=== PATIENT | male | born 1960 | race Caucasian/White ===

== ENCOUNTER 2016-12-12 04:31 | Inpatient (IN) | payer OTHER ==
--- NOTE | 2016-12-10 14:35 | EKG Report ---
Test Performed on : 12/10/2016 2:23:03 PM Test Reason : PAT Blood Pressure : / mmHG Vent. Rate : 059 BPM Atrial Rate : 059 BPM P-R Int : 178 ms QRS Dur : 094 ms QT Int : 394 ms P-R-T Axes : 045 009 039 degrees QTc Int : 390 ms Sinus bradycardia. Possible Inferior infarct (cited on or before 01-SEP-2015) Abnormal ECG When compared with ECG of 01-SEP-2015 06:58, No significant change was found Confirmed by Jakob Troy MD ([id number]) on 12/11/2016 9:46:36 PM
[2016-12-10 15:07] LABS: MANUAL DIFF NEEDED? NO
[2016-12-10 15:14] LABS: BASO% 0.3 % (0.0-0.8); EOS# 0.11 X1000 (0.0-0.7); EOS% 1.8 % (0.0-10.0); HEMATOCRIT 44.8 % (42.0-52.0); HEMOGLOBIN 15.6 g/dL (14.0-18.0); LYMPH# 1.86 X1000 (1.2-3.4); LYMPH% 30.7 % (20.5-51.1); MCH 30.4 PG (27-31); MCHC 34.8 g/dL (33-37); MCV 87.3 FL (81-99); MONO# 0.56 X1000 (0.11-0.59); MONO% 9.3 % (1.7-9.3); MPV 9.8 FL (7.4-10.4); NEUT% 57.9 % (42.2-75.2); PLT 261 X1000 (130-400); RBC 5.13 XMIL (4.7-6.1)
[2016-12-10 15:20] LABS: INR 0.98; PROTIME 10.4 Seconds (9.2-11.7); PTT 25.2 Seconds (22.0-36.0)
[2016-12-10 15:32] LABS: AGAP 12; BUN 19 mg/dL (8-22); CALCIUM 8.7 mg/dL (8.8-10.2); CHLORIDE 98 mmol/L (98-107); COSMO 271; POTASSIUM 4.1 mmol/L (3.5-5.1); SODIUM 134 mmol/L (136-145); TCO2 24 mmol/L (25-35)
[2016-12-12] MEDS ORDERED: TRANSDERM-SCOP ONE (06:30)
[2016-12-12] MEDS ORDERED: VALIUM ONE (06:31)
[2016-12-12] MEDS ORDERED: LR 1,000 ML ONE ×2 (06:31→14:08)
[2016-12-12] MEDS ORDERED: KEFZOL 2 GM/D5W 50 ML ONE (06:31)
[2016-12-12 09:22] LABS: URINE MICRO REVIEW NEEDED? NO; URINE SOURCE CATH
[2016-12-12 09:26] LABS: BILIRUBIN URINE NEGATIVE (NEGATIVE); BLOOD URINE NEGATIVE (NEGATIVE); COLOR YELLOW; GLUCOSE URINE NEGATIVE (NEGATIVE); LEUKOCYTES URINE NEGATIVE (NEGATIVE); NITRITE URINE NEGATIVE (NEGATIVE); PH URINE 6.5; PROTEIN URINE NEGATIVE (NEGATIVE); SP GRAVITY URINE 1.017; TURBIDITY URINE CLEAR (CLEAR); UR EPITHELIAL CELLS <10 /HPF (<10); URINE BACTERIA NEGATIVE /HPF; URINE RBC <10 /HPF (<10); URINE WBC <10 /HPF (<10); UROBILINOGEN URINE NORMAL (NORMAL)
[2016-12-12] MEDS ORDERED: MARCAINE 0.25% PF ONE (12:33)
[2016-12-12] MEDS ORDERED: FENTANYL ONE (13:52)
[2016-12-12] MEDS: DILAUDID ONE ×6 (13:52→14:52)
[2016-12-12] MEDS ORDERED: VERSED ONE (13:53)
[2016-12-12] MEDS ORDERED: DIPRIVAN 1% ONE (13:53)
[2016-12-12] MEDS ORDERED: MORPHINE IM PRN (14:14)
[2016-12-12] MEDS ORDERED: ZOFRAN IV PRN (14:14)
[2016-12-12] MEDS: PHENERGAN ONE ×2 (14:39→14:49)
[2016-12-12] MEDS ORDERED: NEOSTIGMINE ONE (14:52)
[2016-12-12] MEDS ORDERED: MANNITOL ONE (14:52)
[2016-12-12] MEDS ORDERED: ZOFRAN ONE (14:52)
[2016-12-12] MEDS ORDERED: QUELICIN (DOSE) ONE (14:53)
[2016-12-12] MEDS ORDERED: ROBINUL ONE (14:53)
[2016-12-12] MEDS ORDERED: NS 3,000 ML ONE (14:53)
[2016-12-12] MEDS ORDERED: EXTENSION SET 32 IN 4522 ONE (14:53)
[2016-12-12] MEDS ORDERED: EPHEDRINE ONE (14:53)
[2016-12-12] MEDS ORDERED: OFIRMEV 1000 MG/ISOTONIC SOLN 100 ML ONE (14:53)
[2016-12-12] MEDS ORDERED: XYLOCAINE-MPF 2% ONE (14:53)
[2016-12-12] MEDS ORDERED: NORCURON ONE (14:53)
[2016-12-12] MEDS ORDERED: LR 2,000 ML ONE (14:53)
[2016-12-12] MEDS ORDERED: DECADRON ONE (14:53)
[2016-12-12] MEDS ORDERED: BLOOD SET Y-TYPE 8949 ONE (14:53)
[2016-12-12] MEDS: DEMEROL IV PRN ×2 (16:47→21:11)
[2016-12-12] MEDS: LR 1,000 ML IV SCH ×2 (16:49→23:55)
[2016-12-12] MEDS: PERCOCET-5 PO PRN (18:33)
--- NOTE | 2016-12-12 20:35 | CONSULTATION ---
DATE OF CONSULTATION: 12/12/2016 HISTORY OF PRESENT ILLNESS: I was asked to see Cesar Shelley, a 56-year-old, white gentleman, admitted to the hospital for postop medical management after right partial nephrectomy for a solid tumor which was incidentally discovered in our clinic. Postoperatively, he is doing some pain. No other complaints. PAST MEDICAL HISTORY: Hypertension. Hyperlipidemia. PAST SURGICAL HISTORY: ACL repair on the right knee. Bilateral inguinal herniorrhaphy. MEDICATIONS PRIOR TO THE ADMISSION: Lisinopril. Naproxen. ALLERGIES: Not known. SOCIAL HISTORY: He is for 36 years. 2 children. No smoking. 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 FAMILY HISTORY: Mother of diabetes complications at 91. Father of some type of cancer, not known. Brother of brain tumor. REVIEW OF SYSTEMS: HEENT: No headache. No vision problem. No earache. No sore throat. Neck: No goiter. No lymphadenopathy. No bruit. Cardiopulmonary: No chest pain, shortness of breath, PND, orthopnea. GI: No nausea, vomiting, abdominal pain. Some postop pain in the right flank. No swelling of legs. Neurologic: Nonfocal. PHYSICAL EXAMINATION: Vital Signs: Stable. HEENT: Atraumatic, normocephalic. Pupils equal, reactive to light. TMs are normal. Nose and throat within normal limits. Neck: Supple. No lymphadenopathy. No goiter. Chest: Clear to auscultation. Heart: Sounds are regular. Abdomen: Belly is soft. DAKOTA drain present on the right side. Extremities: No peripheral edema, cyanosis. Neurological: No obvious neurological deficits noted. INVESTIGATIONS: CBC is normal. SMA 7 is normal. Urinalysis is clear. ASSESSMENT AND PLAN: 1. A 56-year-old white male, partial nephrectomy on the right side with solid tumor follow up on histological examination. Check the labs in the morning. 2. Pain control with Demerol, IV fluids. Deep venous thrombosis prophylaxis with ALPESH hose. 3. Hypertension, on lisinopril. Incentive spirometry. We will follow up. Once again, thanks for the kind referral.
[2016-12-12] MEDS: NAPROSYN PO SCH (21:07)
[2016-12-12] MEDS: PERIDEX MT SCH (21:11)
[2016-12-12] MEDS: SODIUM CHLORIDE 0.9% INJ PRN (21:21)
[2016-12-12] MEDS: PHENERGAN IV PRN (21:22)
--- NOTE | 2016-12-12 21:40 | OPERATIVE NOTE ---
PROCEDURE DATE: 12/12/2016 PREOPERATIVE DIAGNOSIS: 1. Right flank pain. 2. Right renal mass. 3. 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 POSTOPERATIVE DIAGNOSIS: Suspicious neoplastic lesion in the right inferolateral border of the kidney. Rule out a complex cyst PROCEDURE: 1. Exploration of the right kidney multiple needle biopsies of the kidney at multiple levels. 2. Wedge biopsy of the renal mass in the inferolateral aspect of the right kidney. 3. Segmental resection of the kidney (partial nephrectomy). ANESTHESIA: General. SURGEON: Ivana Umanzor MD MANUFACTURER'S SERVICE REPRESENTATIVE: Joshua Stuart DO HISTORY AND FINDINGS: A 55-year-old white male with a history of flank and back pain on the right side, had a CT scan which a showed a mass effect peripherally in the right inferolateral aspect towards the lower pole of the kidney. The radiologist thought that it was renal cell cancer. There was concentration of the contrast in the lesion even though there was a small cystic lesion at the periphery. Metastatic workup was done which was all negative, including the bone scan. He was brought in this time after extensive discussion for exploration and possible radical nephrectomy and appropriate surgery. The patient understood the risks, and benefits and agreed for the surgery. DETAILS OF OPERATION: The patient was taken to the operating room and was induced with general anesthesia. We selected to have the extraperitoneal extrapleural anterolateral position. We put in a Kendall catheter. Axillary roll was put in. A graves bag was used. We made a subcostal incision on the right side. It was deepened through the muscle layers. The lumbodorsal fascia was incised. The retroperitoneum was entered. The patient had abundant perinephric fat. The renal hilar strictures were identified. One vessel loop was passed around the renal hilar structures. One umbilical tape was passed around the ureter. We mobilized the kidney bluntly. The renal kidney with the different area were palpated both by me and by Dr. Stuart. We took needle biopsies with the Michael-Cut biopsy needle at the mid zone, then the upper pole, then the inferior pole, and then all came back normal renal tissue without any evidence of malignancy. Fourth biopsy was obtained from the right inferolateral towards the cortex where the tumor was suspected and one of the pathologist commented that there were some abnormal cells, but not particularly neoplastic like renal cell cancer. Then we did the wedge resection biopsy of that suspicious lesion and the cyst also was removed. Here again, the biopsy was equivocal and we did not have a definite conclusive diagnosis on the frozen section. I talked to Dr. Nugent, the pathologist in person. At this juncture, we decided to do a segment of resection, since the CT scan was negative and we felt some indurated areas over there which were suspicious for malignancy. With a sharp knife I made a little incision and the capsule was reflected by the handle of the Bard-Vernon knife. I made the further incision on the kidney. The collecting system in the inferior pole and the polar blood vessels were suture ligated with 3-0 Vicryl sutures. Bleeding was controlled. Then I closed the kidney with Surgicel and perinephric fat tied over chromic sutures with the liver suture needles, the bleeding was completely under control. In the meantime, we had passed some vessel loops around the renal hilum and the pressure was released enough and after releasing the pressure, we saw it again and there was no bleeding. We did the intraoperative renal ultrasound in a sterile technique and we did not find any lesion which should be suspicious for renal cell cancer. The wound was irrigated. Sponge and instrument count was done which was correct on 3 occasions. At this time we put the number7 DAKOTA drain in the retroperitoneum and closed the wound in 3 layers. The skin was closed with nick. Estimated Blood Loss 450 mL. Complications were none. 0.5% plain Marcaine was injected to the wound for postop analgesia. The patient tolerated the posterior well and returned to the recovery room in stable condition. [facility]
[2016-12-13] MEDS: DEMEROL IV PRN (03:31)
[2016-12-13] MEDS: SODIUM CHLORIDE 0.9% INJ PRN (03:31)
[2016-12-13] MEDS: PHENERGAN IV PRN (03:32)
[2016-12-13] MEDS: PERCOCET-5 PO PRN ×3 (05:03→14:25)
[2016-12-13] MEDS: LR 1,000 ML IV SCH ×2 (06:26→14:37)
[2016-12-13 07:01] LABS: HEMATOCRIT 39.6 % (42.0-52.0); HEMOGLOBIN 13.3 g/dL (14.0-18.0)
[2016-12-13 07:09] LABS: AGAP 14; BUN 16 mg/dL (8-22); CALCIUM 8.6 mg/dL (8.8-10.2); CHLORIDE 100 mmol/L (98-107); COSMO 280; POTASSIUM 4.6 mmol/L (3.5-5.1); SODIUM 139 mmol/L (136-145); TCO2 25 mmol/L (25-35)
[2016-12-13] MEDS: PERIDEX MT SCH ×2 (09:16→20:22)
[2016-12-13] MEDS: NAPROSYN PO SCH ×2 (09:17→20:22)
[2016-12-13] MEDS: PRINIVIL PO SCH (09:17)
[2016-12-13] MEDS ORDERED: DULCOLAX PR ONE (14:10)
[2016-12-14] MEDS: PERCOCET-5 PO PRN ×5 (00:11→20:12)
[2016-12-14] MEDS: LR 1,000 ML IV SCH ×3 (00:28→21:33)
[2016-12-14] MEDS ORDERED: REGLAN IV ONE (08:49)
[2016-12-14] MEDS ORDERED: REGLAN IV PRN (08:49)
[2016-12-14] MEDS: NAPROSYN PO SCH ×2 (10:03→20:12)
[2016-12-14] MEDS: PERIDEX MT SCH ×2 (10:04→20:12)
[2016-12-14] MEDS: PRINIVIL PO SCH (10:05)
--- NOTE | 2016-12-14 10:57 | Diag Imaging Result Document ---
PROCEDURE NAME: KUBrenda ABDOMEN - 12/14/2016 KUB: FINDINGS: There are postsurgical changes with a drain seen in the right abdomen. There is gas and stool throughout the colon including the distal sigmoid. There is no evidence of small bowel dilatation or gastric distention. No evidence of organomegaly or mass is present. IMPRESSION: Constipation and possible colonic ileus.
[2016-12-14] MEDS: PHENERGAN IV PRN (11:24)
[2016-12-15] MEDS: PERCOCET-5 PO PRN ×3 (02:35→12:15)
[2016-12-15] MEDS: LR 1,000 ML IV SCH (06:31)
--- NOTE | 2016-12-15 08:17 | PROGRESS NOTE ---
DATE: 12/15/2016 SUBJECTIVE: I am seeing the patient in Dr. Roberson's absence. The patient is doing better. Less abdominal distention. Passing gas now and had 1 small bowel movement yesterday. OBJECTIVE: Vital Signs: Afebrile. Pulse 68, respirations 14, blood pressure 124/66, O2 saturation on room air 95-98%. Tolerated full liquid diet. CV: RRR without murmur. Lungs: CTA. Abdomen: Soft. Active bowel sounds. Noted [id number] distention. No rebound or guarding. Extremities: No significant calf tenderness, cords or edema. ASSESSMENT: 1. Postoperative ileus. 2. Postoperative day #3, status post right renal mass excision/partial nephrectomy. 3. Hypertension. 4. Hyperlipidemia. PLAN: Continue present treatments. Dr. Umanzor may elect to advance his diet. For now, continue lisinopril regarding BP control. Monitor renal function closely with [facility] tomorrow.
[2016-12-15] MEDS: NAPROSYN PO SCH (09:27)
[2016-12-15] MEDS: PRINIVIL PO SCH (09:27)
[2016-12-15] MEDS: PERIDEX MT SCH (09:27)
[2016-12-15 12:22] VITALS: BP 113/62
[2016-12-15] MEDS ORDERED: NS 500 ML ONE (14:27)
[2016-12-15] MEDS ORDERED: NS 500 ML IV SCH (14:30)
[2016-12-15] MEDS ORDERED: NS 1,000 ML IV SCH (14:45)
--- NOTE | 2016-12-16 08:08 | DISCHARGE SUMMARY ---
ADMISSION DATE: 12/12/2016 DISCHARGE DATE: 12/15/2016 DISCHARGE DIAGNOSES: 1. Undetermined right renal mass, final pathology report pending. 2. Mild ileus postoperatively. PROCEDURES: Exploration of the right kidney, multiple needle biopsies and a wedge resection biopsy, intraoperative ultrasound, and segmental resection of the lower part of kidney (partial nephrectomy). COMPLICATIONS: None. OTHER DIAGNOSIS: Could be complex renal cyst, rule out renal cell cancer, rule out benign fibroma or angioma or lipoma. HOSPITAL COURSE: The patient was evaluated as an outpatient. The CT scan with contrast revealed a hypervascular mass in the right kidney in the inferolateral aspect, about 4 cm in size. Apparently, the radiologist report, there was a high degree of suspicion of renal cell cancer. After discussion with the patient and the family, it was decided to explore the kidney and do the biopsy by open method. Depending upon that, do the surgery as needed, starting from radical nephrectomy to partial nephrectomy. The patient accepted the risks and benefits. He was taken to the operating room and the right kidney was explored by extraperitoneal, extrapleural subcostal approach. The kidney was explored. Except for the area in the right inferolateral area where there was some induration, no other mass was felt. Intraoperative ultrasound did not reveal any abnormal lesions. The needle biopsy was negative on frozen section. The excisional biopsy from the suspicious lesion also was ambiguous. Some abnormal cells were seen but not enough to call it any cancer of the kidney. There was still some induration there where the tumor was suspected. Hence, we ended up doing segmental resection of the kidney (partial nephrectomy). The remaining kidney, which was about eight-tenth of the renal tissue left in, which was healthy. The collecting system was repaired in the lower pole. We closed the kidney with perinephric fat and Surgicel, etcetera, to have a watertight closure. The postop course was uneventful except for a little mild ileus which corrected by itself. He was sent home with advice to return the middle of next week. I have discussed with the pathologist, Dr. Kirkland, more than once and so far, they have not found any malignancy. However, it should be sent outside for a 2nd opinion. The discharge medication included [place] 10/325, Keflex 500 one, Fleets enema, and multivitamin. Postoperative instructions were given. I will discuss further with the radiologist about the CAT scan report. Dr. Roberson saw him in consult for the medical problems.
== END 2016-12-15 15:52 | disposition home or self-care (01) | DRG 660 ==
LOC: SURHOLD 04:31 → 4N 13:57
PROVIDERS: ADMIT Specialist; ATTEND Specialist
PROC: 0TB00ZZ Excision of Right Kidney, Open Approach (ICD-10-PCS; principal; 2016-12-12 08:30)
PROC: 0TB00ZX Excision of Right Kidney, Open Approach, Diagnostic (ICD-10-PCS; 2016-12-12 08:30)
DX: N28.89 Other specified disorders of kidney and ureter (principal); K56.7 Ileus, unspecified; I10 Essential (primary) hypertension; K91.89 Other postprocedural complications and disorders of digestive system; E78.5 Hyperlipidemia, unspecified; Z79.899 Other long term (current) drug therapy; Z87.11 Personal history of peptic ulcer disease; Z83.3 Family history of diabetes mellitus; Z80.9 Family history of malignant neoplasm, unspecified
CPT/HCPCS: 74000; 76942; 80048; 81001; 85014; 85018; 85025; 85610; 85730; 86850; 86900; 86901; 86920; 88305; 88307; 88331; 93005; 93010; 94761; 94799; J0131; J0330; J0690; J1100; J1170; J2150; J2175; J2250; J2405; J2550; J3010; J7030; J7040; J7120; J2710; S0020

== ENCOUNTER 2017-06-10 17:21 | Inpatient (IN) ==
[2017-06-10 17:57] LABS: MANUAL DIFF NEEDED? NO
[2017-06-10 17:59] LABS: BASO% 0.2 % (0.0-0.8); EOS# 0.07 X1000 (0.0-0.7); EOS% 0.8 % (0.0-10.0); HEMATOCRIT 45.1 % (42.0-52.0); HEMOGLOBIN 15.1 g/dL (14.0-18.0); LYMPH# 2.25 X1000 (1.2-3.4); LYMPH% 25.5 % (20.5-51.1); MCH 29.3 PG (27-31); MCHC 33.5 g/dL (33-37); MCV 87.4 FL (81-99); MONO# 0.83 X1000 (0.11-0.59); MONO% 9.4 % (1.7-9.3); MPV 9.9 FL (7.4-10.4); NEUT% 64.1 % (42.2-75.2); PLT 239 X1000 (130-400); RBC 5.16 XMIL (4.7-6.1)
--- NOTE | 2017-06-10 18:01 | Diag Imaging Result Doc PS360 ---
EXAM: CHEST-2 VIEWS HISTORY: CP TECHNIQUE: PA and lateral chest COMMENT: There is mild blunting of the left costophrenic angle which may be due to fibrosis. The heart size and pulmonary vascularity are within normal limits. The lungs are apparently clear. IMPRESSION: Left pleural fibrosis. Electronically signed by Jeevan Price 06/10/2017 5:58 PM
[2017-06-10 18:13] LABS: INR 0.96; PROTIME 10.1 Seconds (9.2-11.7); PTT 28.2 Seconds (22.0-36.0)
[2017-06-10 18:21] LABS: ALBUMIN 4.4 g/dL (3.5-5.0); CALCIUM 9.4 mg/dL (8.8-10.2); MAGNESIUM 2.2 mg/dL (1.5-2.7); POTASSIUM 4.2 mmol/L (3.5-5.1); TOTAL BILIRUBIN 0.42 mg/dL (0.20-1.00); TOTAL PROTEIN 7.5 g/dL (6.3-8.3)
[2017-06-10] MEDS ORDERED: LOVENOX 1 MG/KG SUBQ ONE (21:13)
--- NOTE | 2017-06-10 21:13 | PROVIDER DOCUMENTATION ---
This chart was entered by Kameron Brady Scribe, acting as scribe for Harpal Neal MD. HPI-Respiratory General - General Chief Complaint: Chest Pain Stated Complaint: CHEST PAIN Time Seen by Provider: 06/10/17 20:02 Source: patient, family Allergies/Adverse Reactions: Patient Allergies Allergy/AdvReac Type Severity Reaction Status Date / Time No Known Allergies Allergy Verified 06/10/17 20:27 Home Medications: Home Medication List Medication Instructions Recorded Confirmed Last Taken Type LISINOpril [Prinivil] 10 mg PO DAILY 09/01/15 06/10/17 06/10/17 History Rivaroxaban [Xarelto] 15 mg PO BID #60 tablet 06/14/17 Unknown Rx - History of Present Illness-Resp Nature of Presenting Problem: Pt is a 56 yowm who presents to ER with C of lower left anterior chest pain on deep inspiration that he noticed last night when he was getting ready for zaynab. Pt reports that he woke up with the same pain but reports that it started to mildly resolve as the day progressed, but was still present and worsened by deep inspiration. Pt reports hx of pna as a young adult, non-smoker with only occasional alcohol use. Pt reports that he has right renal surgery on 12/12 of [address] by Dr. Hilliard (Surgeon) to remove a mass from his right kidney, but the surgery was unsuccessful at removing the tumor and pt reports that he was referred to [place] where he had his tumor frozen. Quality of Pain: reports: sharp Severity in ED: reports: moderate Onset/Duration: reports: last night Timing: reports: intermittent Associated Symptoms: reports: chest pain/soreness, fever/chills, hurts to breathe. denies: cough, heart racing, hyperventilating, lightheadedness, shortness of breath, sinus pain, short of breath, sore throat, sweaty, wheezing Similar Symptoms Previously?: No Recently seen or treated by another doctor?: No Review of Systems - Adult - REVIEW OF SYSTEMS - ADULT Constitutional: reports: chills, fever. denies: fatique, night sweats, weight gain, weight loss Eyes: reports: no symptoms reported Ears, Nose, Mouth & Throat: reports: no symptoms reported Cardiovascular: reports: no symptoms reported Respiratory: reports: dyspnea on exertion, pleurisy. denies: chronic cough, cough, excessive sputum production, hemoptysis, shortness of breath, wheezing Gastrointestinal: reports: no symptoms reported Genitourinary: reports: no symptoms reported Musculoskeletal: reports: no symptoms reported Integumentary: reports: no symptoms reported Neurological: reports: no symptoms reported Psychiatric: reports: no symptoms reported Endocrine: reports: no symptoms reported Hematologic/Lymphatic: reports: no symptoms reported Allergic/Immunologic: reports: no symptoms reported All Other Systems: Reviewed and Negative Past History - Adult - PAST MEDICAL HISTORY-ADULT Review of Records: reports: Old Records Reviewed, Nursing Assessment Review, Medications Reviewed Cardiovascular: reports: HTN, hyperlipidemia Genitourinary: reports: cancer (renal cell carcinoma, right) - PRIOR SURGERIES/PROCEDURES Surgical/Procedure History: reports: hernia repair, orthopedic (extremity) - IMMUNIZATION STATUS Childhood Immunizations: See Nurse Assessment Flu Vaccine: See Nurse Assessment Physical Exam-General - PHYSICAL EXAM-ADULT Initial Vital Signs Reviewed: Yes - CONSTITUTIONAL General Appearance: appears well, alert, no apparent distress - EYES Eyes: PERRL/EOMI, pink conjunctivae - RESPIRATORY Respiratory: chest non-tender, lungs clear, normal breath sounds, no pleuratic chest pain, no respiratory distress, no accessory muscle use. negative: respiratory distress, decreased breath sounds, accessory muscle use, wheezing - CARDIOVASCULAR Cardiovascular: normal peripheral pulses, regular rate, rhythm, other (BP (158/ 99)). negative: bradycardia, tachycardia, irregularly irregular - GASTROINTESTINAL (ABDOMEN) Abdominal Exam: normal bowel sounds, non tender, soft, no organomegaly, no pulsatile mass. negative: guarding, rebound, tenderness - MUSCULOSKELETAL Extremity: normal range of motion, non-tender, normal gait, normal inspection, no pedal edema, no calf tenderness, normal capillary refill, pelvis stable. negative: pedal edema, swelling, tenderness - PSYCHIATRIC Psych/Mental Status: normal mood/affect, normal thought content, normal thought process, oriented x 3 Progress - PLAN OF CARE/RESULTS Progress/Plan/Lab Results: Orders Category Date Time Status Admit - [facility] Routine AdmDCTranf 06/11/17 01:53 Ordered Activity - Up with Assistance ORDERED Care 06/11/17 01:53 Active Heart Healthy Diet Diet 06/11/17 01:13 Completed CHEST-2 VIEWS [RAD] Stat Exams 06/10/17 17:[address] ANGIOGRM/PULMONARY ARTERIES [CT] Stat Exams 06/10/17 20:40 Completed ANTI-THROMBIN III ACTIVITY [HH] Routine Lab 06/11/17 05:30 Completed CBC WITH ELECTRONIC DIFF [HEME] Stat Lab 06/10/17 17:36 Completed CK PROFILE [SP CHEM] Stat Lab 06/10/17 17:36 Completed CK TOTAL [CHEM] Stat Lab 06/10/17 20:17 Completed COMPREHENSIVE METABOLIC PANEL [CHEM] Stat Lab 06/10/17 17:36 Completed D-DIMER [CHEM] Stat Lab 06/10/17 17:36 Completed FACTOR V [id number] LEIDEN [[place]STE[place]] Routine Lab 06/11/17 05:30 Completed HOMOCYSTEINE TOTAL PLASMA [HH] Routine Lab 06/11/17 05:30 Completed MAGNESIUM [CHEM] Stat Lab 06/10/17 17:36 Completed PHOSPHOLIPID AB [[place]STEAD] Routine Lab 06/11/17 05:30 Completed PRO B-NATRIURETIC PEPTIDE Stat Lab 06/10/17 17:36 Completed PROTEIN C ACTIVITY [HH] Routine Lab 06/11/17 05:30 Completed PROTEIN S ACTIVITY [HH] Routine Lab 06/11/17 05:30 Completed PROTIME WITH INR [COAG] Stat Lab 06/10/17 17:36 Completed PTT [COAG] Stat Lab 06/10/17 17:36 Completed TROPONIN T Stat Lab 06/10/17 17:36 Completed TROPONIN T Stat Lab 06/10/17 20:17 Completed Enoxaparin 1 mg/kg [Lovenox 1 mg/kg] Med 06/10/17 21:13 Discontinued 1 each SUBQ NOW ONE Enoxaparin [Lovenox] Med 06/11/17 09:00 Discontinued 110 mg SUBQ 12 Enoxaparin [Lovenox] Med 06/10/17 21:30 Discontinued 110 mg SUBQ NOW ONE Hydromorphone [Dilaudid] Med 06/10/17 22:39 Discontinued 1 mg IV NOW ONE LISINOpril [Prinivil] Med 06/11/17 09:00 Discontinued 10 mg PO DAILY Morphine Med 06/11/17 01:53 Discontinued 2 mg IV Q4H PRN PRN Ondansetron [Zofran] Med 06/10/17 22:39 Discontinued 4 mg IV NOW ONE Pulse Oximetry Routine Oth 06/11/17 01:53 Completed EKG [EKG] Stat Ther 06/10/17 17:30 Draft Transfer/Admit Order [TRANSFER] Routine Transfer 06/11/17 01:08 Completed Result Diagrams: 06/11/17 05:30 06/11/17 05:30 - CT/MRI 1 CT Study: Angiogram Impression: See EMR Report (Pulmonary emboli, particularly in the right lower lung - Dr. Price (Radiologist)) - CONSULTS/PCP/HOSPITALIST Notification #1 *Consult/PCP/Hospitalist*: Dr. Roberson (PCP) Time Discussed: 21:37 (Call Hospitalist and admit to his service in the am) Consult Disposition: other #2 Consult: Dr. Damon (Hospitalist) Time Discussed: 21:40 Consult Disposition: Admit Departure - Departure Date of Disposition Decision: 06/11/17 Time of Disposition Decision: 02:00 DIAGNOSIS: Pleuritic chest pain Pulmonary emboli Qualifiers: Pulmonary embolism type: other Chronicity: acute Acute cor pulmonale presence: without acute cor pulmonale Qualified Code(s): I26.99 - Other pulmonary embolism without acute cor pulmonale Disposition: ADMITTED INPATIENT 09 Certified Medical Emergency: Emergent Condition: Stable - Critical Care Note This patient required my direct & personal management of CC.: Yes Attestation - Physician/ BRENDA Attestation Patient care was provided by Advanced Practice Provider:: No The physician spent face to face time with patient:: Yes Advanced Practice Provider documentation review:: Supervising physician onsite and consulted in the evaluation and care of this patient. The physician did have a face to face encounter with the patient. This chart was documented by the indicated scribe, (Kameron Brady Scribe) and accurately reflects the services I performed and decisions made by me, Harpal Neal MD, as attested by the provider's signature.
[2017-06-10] MEDS ORDERED: LOVENOX SUBQ ONE (21:30)
[2017-06-10] MEDS ORDERED: DILAUDID IV ONE (22:39)
[2017-06-10] MEDS ORDERED: ZOFRAN IV ONE (22:39)
[2017-06-11] MEDS: MORPHINE IV PRN ×2 (02:01→05:34)
--- NOTE | 2017-06-11 04:49 | HISTORY AND PHYSICAL ---
PRIMARY CARE PHYSICIAN: Dr. Pieter Roberson. CHIEF COMPLAINT: Shortness of breath and pleuritic chest pain. HISTORY OF PRESENT ILLNESS: Mr. Shelley is a 56-year-old male with a past medical history of hypertension and renal cell carcinoma who comes to the hospital complaining of shortness of breath and pleuritic chest pain. The patient states that last night, a day prior to admission, he went to sleep with left lower lobe chest pain that was worse on deep inspiration. Patient did not think much of it. Went to sleep and the next day, woke up with the same pain. Patient went to work and at the end of the day as he was driving home, he felt a very sharp stabbing pain in the left lower side. The patient was able to drive home and his drove him immediately to the hospital. In the emergency room, he was given Lovenox after a CT scan showed that there was a pulmonary embolism on the right side. REVIEW OF SYSTEMS: Negative except as stated above. PAST MEDICAL HISTORY: Renal cell carcinoma status post cryoablation, hypertension. PAST SURGICAL HISTORY: Renal cell carcinoma, open surgery, 3 hernias repaired, ACL repair, deviated septum repair, cryoablation. ALLERGIES: None. HOME MEDICATIONS: Lisinopril 10 mg tablet oral daily. SOCIAL HISTORY: Patient denies smoking. Drinking alcohol only socially. Denies using illicit drugs. FAMILY HISTORY: His brother of a brain tumor in childhood and father of complications of amyloidosis. PHYSICAL EXAMINATION: VITAL SIGNS: Temperature 99.3 degrees, pulse 64, respirations 20, blood pressure 150/96, oxygen saturation 96% on room air. GENERAL: Patient is alert and oriented x3. No acute distress. HEENT: Head is normocephalic, atraumatic. Eyes, LUIS. Moist mucous membranes. NECK: Supple. No JVD. PULMONARY: Small decrease in ventilation on the right lower lobe. CARDIOVASCULAR: S1, S2. No rubs, murmurs, or gallops. ABDOMEN: Soft, nondistended, nontender. EXTREMITY: No lower extremities edema. Full range of motion. NEUROLOGIC: Cranial nerves 2-12 grossly intact. No focal deficits. PSYCHIATRIC: Normal mood and affect. LABORATORY DATA: White blood cell count 8.8, hemoglobin 15, hematocrit 45, platelets 239,000. Sodium 136, potassium 4.2, BUN 18, creatinine 1.3. LFTs within normal limits. Troponin #1 negative. D-dimer positive 2.04. DIAGNOSTIC IMAGING: Chest x-ray shows left pleural fibrosis. Pulmonary arteriogram shows pulmonary emboli, particularly in the right lower lobe. ASSESSMENT AND PLAN: 1. Pulmonary embolism. Even though Mr. Shelley is having left-sided chest pain, the CT scan shows that the embolism is on the right side. In the emergency room, he was given an initial dose of Lovenox 110 mg. We will continue Lovenox based on weight every 12 hours. Next dose at 9 a.m. Clotting studies have been ordered, requested by patient's primary care physician. We will control pain with morphine as needed. 2. Hypertension. We will continue patient's home medication, 10 mg lisinopril. 3. Renal cell carcinoma. The patient seems to be stable. At the moment, he is not taking any chemotherapy or undergoing radiation therapy. The patient has a followup appointment in July for a PET scan. cc: Maeve Damon MD
--- NOTE | 2017-06-11 05:19 | EKG Report ---
Test Performed on : 06/10/2017 5:25:42 PM Test Reason : Chest Pain Blood Pressure : / mmHG Vent. Rate : 071 BPM Atrial Rate : 071 BPM P-R Int : 166 ms QRS Dur : 090 ms QT Int : 368 ms P-R-T Axes : 051 -06 028 degrees QTc Int : 399 ms Normal sinus rhythm. Normal ECG When compared with ECG of 10-DEC-2016 14:23, Criteria for Inferior infarct are no longer present Unconfirmed Result
[2017-06-11] MEDS ORDERED: MORPHINE IV ONE (05:43)
[2017-06-11 06:13] LABS: MANUAL DIFF NEEDED? NO
[2017-06-11 06:15] LABS: BASO% 0.3 % (0.0-0.8); EOS# 0.04 X1000 (0.0-0.7); EOS% 0.6 % (0.0-10.0); HEMATOCRIT 41.9 % (42.0-52.0); LYMPH# 1.67 X1000 (1.2-3.4); LYMPH% 23.7 % (20.5-51.1); MCH 29.5 PG (27-31); MCHC 33.4 g/dL (33-37); MCV 88.2 FL (81-99); MONO% 9.9 % (1.7-9.3); MPV 9.9 FL (7.4-10.4); NEUT% 65.5 % (42.2-75.2); PLT 228 X1000 (130-400); RBC 4.75 XMIL (4.7-6.1)
[2017-06-11] MEDS: TYLENOL PO PRN ×3 (06:38→19:26)
[2017-06-11 06:44] LABS: AGAP 12; BUN 14 mg/dL (8-22); CALCIUM 8.7 mg/dL (8.8-10.2); CHLORIDE 101 mmol/L (98-107); CK PROFILE 57 U/L (24-204); COSMO 280; POTASSIUM 4.4 mmol/L (3.5-5.1); SODIUM 140 mmol/L (136-145); TCO2 27 mmol/L (25-35)
--- NOTE | 2017-06-11 09:05 | PROGRESS NOTE ---
DATE: 06/11/2017 SUBJECTIVE: The patient's history was reviewed. A 56-year-old white gentleman, haseeb, admitted to the hospital with left-sided chest pain. Upon workup in the emergency room, he was found to have pulmonary embolism in the right lung. He has a history of right kidney mass and has been frozen in [place]. REVIEW OF SYSTEMS: General: Left-sided chest pain. No syncope. No shortness of breath. GI: No nausea, vomiting, abdominal pain. Extremities: Left leg is slightly more swollen than the right side. History of hamstring injury 3 years ago. Skin: No skin rashes. PHYSICAL EXAMINATION: Vital Signs: Afebrile. Vitals are stable. 6 feet 6 inches, 249 pounds. HEENT: Exam within normal limits. Neck: Supple. No lymphadenopathy. Chest: Clear. Heart: Sounds are regular. Abdomen: Belly is soft, nontender. Good bowel sounds. Extremities: The left leg is slightly swollen. Neurological: No obvious neurological deficits. INVESTIGATIONS: CBC: White cell count 7, hematocrit 42, platelets 228. D-dimer was positive. SMA 7: Creatinine 1.0. Cardiac enzymes were normal. ProBNP was normal. EKG normal sinus, nothing acute. ASSESSMENT AND PLAN: 1. Left-sided chest pain with pulmonary embolism on the right side. Plan is venous Dopplers in both legs waiting for thrombophilia workup. 2. Right kidney mass status post frozen in [place] in March 2017. Waiting for repeat CT in July. 3. Hypertension on lisinopril. 4. Pulmonary embolism, workup in progress. Continue on Lovenox twice daily. Will follow up. LEVEL OF DOCUMENTATION: 35 minutes. cc: Pieter Roberson MD
[2017-06-11] MEDS ORDERED: MORPHINE IV PRN (10:00)
[2017-06-11] MEDS: PRINIVIL PO SCH (10:04)
[2017-06-11] MEDS: LOVENOX SUBQ SCH ×2 (10:04→21:02)
[2017-06-12] MEDS: PRINIVIL PO SCH (11:36)
[2017-06-12] MEDS: LOVENOX SUBQ SCH (11:40)
--- NOTE | 2017-06-12 15:05 | CONSULTATION ---
DATE OF CONSULTATION: 06/12/2017 REQUESTING PHYSICIAN: Dr. Roberson. REASON FOR CONSULTATION: PTE. HISTORY OF PRESENT ILLNESS: Mr. Shelley is a healthy, 56-year-old male, who has a previous history of renal cell carcinoma, who presented to [facility] complaining of new-onset shortness of breath with pleuritic chest pain. He was evaluated in the emergency room and was found to have, what was believed to be, bilateral PTE. He is currently on therapeutic Lovenox. The patient does have a history of renal cell carcinoma, as previously mentioned. He is status post cryo treatment to his kidney lesion. PAST MEDICAL HISTORY: 1. Renal cell carcinoma, status post cryoablation. 2. Hypertension. PAST SURGICAL HISTORY: 1. Renal cell carcinoma, status post cryoablation. 2. Three hernia repairs. 3. Previous ACL repair. 4. Deviated septum repair. SOCIAL HISTORY: The patient denies any smoking. He does drink alcohol socially. He denies any illicit drug use. FAMILY HISTORY: His brother of a brain tumor in childhood, and his father of complications of amyloidosis. REVIEW OF SYSTEMS: A 12-point review of systems has been completed and is negative, except for what was expressed in the HPI. PHYSICAL EXAMINATION: Vital Signs: Temperature 98.4 degrees, heart rate 55, respirations 18, blood pressure 137/86, O2 saturation 97% on room air. General: Well-nourished , well-developed male, who is in no acute distress. HEENT: Head is normocephalic, atraumatic. Eyes: Pupils equal, round, reactive. Ears, nose, throat, neck, and mouth: Oral mucosa appears to be normal, with moist mucous membranes. Gross auditory acuity is intact. Neck: Supple and trachea is midline. Pulmonary: Clear to auscultation bilaterally. Normal respiratory effort. No rhonchi, rales, or wheezing noted. Cardiovascular: S1 and S2 heard with no murmurs, gallops, rubs appreciated. Regular rate and rhythm. Abdomen: Soft, nontender, nondistended, with positive bowel sounds. The patient does have a right flank incision that is well-healed. musculoskeletal: No obvious bony abnormalities noted. Extremities: The patient has no clubbing cyanosis or edema noted. Neurologic: The patient is alert and oriented x3 with no focal deficits. LABORATORIES AND STUDIES: White blood cells 7.04, hemoglobin 14.0, hematocrit 41.9, platelets 228,000. Sodium 140, potassium 4.4 chloride 101, CO2 27, BUN 14, creatinine 1.0. Glucose 104. Pulmonary arteriogram: Final report is pending. Per the H and P, it does appear that the patient, at least, has a pulmonary embolism on the right side. The patient also reports that his bilateral lower extremity Dopplers were negative, per the commercial maintenance technician. Final report is currently pending. Homocystine is 9.1. ASSESSMENT AND PLAN: 1. Pulmonary thromboembolism, new-onset. The patient is currently on therapeutic Lovenox at 1 mg/kg q.12 hours. We recommend that the patient be transition to Xarelto 15 mg b.i.d. x21 days, and then 20 mg thereafter prior to his discharge. Hypercoagulable workup is ordered and currently pending. We will follow up on those results as well. The patient will need a minimum of 3 months of anticoagulation therapy. 2. History of renal cell carcinoma. The patient has not had any restaging scans since his cryoablation. We recommend doing an outpatient PET. The patient's creatinine is borderline at 1.0, and he has already had a CT angiogram since his admission. No immediate need for any CT imaging at this time in regards to his renal cell carcinoma. 3. Hypertension, currently well-controlled with lisinopril. 4. Pain, well-controlled with morphine p.r.n. We want to thank you for allowing us to participate in Mr. Shelley's care while he is here at [facility]. We will continue to follow along and adjust our treatment plan per his hospital course. Dictated by ROYER Garza for Mylene Syed MD cc: MD Pieter Figueroa MD I have seen and examined the patient and agree with above A/P. Mylene COSTELLO
[2017-06-12] MEDS: TYLENOL PO PRN (18:00)
[2017-06-12] MEDS ORDERED: AYR NASAL SPRAY NAS PRN (18:04)
--- NOTE | 2017-06-12 18:32 | PROGRESS NOTE ---
DATE: 06/12/2017 SUBJECT: The patient is doing very well. No intermittent chest pain. No shortness of breath. REVIEW OF SYSTEMS: None reported. PHYSICAL EXAMINATION: Vital Signs: He is afebrile. Vitals are stable. HEENT: Within normal limits. Neck: Supple. No lymphadenopathy. Chest: Clear to auscultation. Heart: Sounds are regular. Abdomen: Belly is soft, nontender. Good bowel sounds. No masses palpable. Extremities: No peripheral edema, cyanosis. Neurologic: No obvious neurological deficits. INVESTIGATIONS: CBC: White cell count 7.0, hematocrit 42, platelet count 228,000. SMA 7: Sodium 140, potassium 4.4, chloride 101, BUN 14, creatinine 1.0. Cardiac enzymes were negative. Homocystine is normal. Antiphospholipid antibody is negative. ASSESSMENT AND PLAN: 1. Pulmonary embolism with underlying right kidney mass status post cryoablation. Continue on Lovenox. Consult with Dr. Mylene Syed. 2. Venous Dopplers were negative. 3. Workup is in progress for thrombophilia. Discussed with the family. LEVEL OF DOCUMENTATION: 25 minutes. cc: Pieter Roberson MD
[2017-06-13] MEDS ORDERED: LOVENOX SUBQ SCH (09:00)
[2017-06-13] MEDS: PRINIVIL PO SCH (09:39)
--- NOTE | 2017-06-13 10:57 | Extremity Venous Study ---
PROCEDURE NAME: Venous U/S Bilateral Legs - 06/11/2017 STUDY: Bilateral lower extremity venous imaging study REQUEST PHYSICIAN: Petar Roberson MD INTERPRETING PHYSICIAN: Yuan Love MD TECH: Marky INDICATION: The patient has a history of pulmonary embolus. This was to the to try to find a source. FINDINGS: Bilateral lower extremity venous images accomplished. The common femoral, superficial femoral, deep femoral, popliteal, posterior tibial, peroneal, and greater saphenous are imaged bilaterally. The Doppler is used to evaluate the veins for spontaneity, phasicity, respiratory excursion, and distal augmentation. All veins were compressible. No intraluminal clot is seen. INTERPRETATION: No evidence of deep or superficial venous thrombosis in either lower extremity in the veins identified. The source of her pulmonary embolus was not identified in this study. cc: MD Pieter Collins MD
--- NOTE | 2017-06-13 14:11 | PROGRESS NOTE ---
DATE: 06/13/2017 SUBJECTIVE: Mr. Shelley is sitting in the hospital bed in no acute distress at this time. OBJECTIVE: Vital signs: Temperature 98.5, heart rate 63, respirations 20, blood pressure 123/78, O2 saturations 95% on room air. LABS AND STUDIES: No new labs today, but factor V Leiden has resulted and is negative. Phospho lipid IgG, IgM antibodies are also within normal limits and negative, and the prothrombin gene mutation is negative. PHYSICAL EXAM: Cardiovascular: S1, S2 heard. No murmurs, gallops, rubs appreciated. Respiratory: Chest clear to auscultation bilaterally. Normal respiratory effort. Gastrointestinal: Abdomen is soft, nontender, nondistended. Positive bowel sounds. Extremities: No edema noted. ASSESSMENT AND PLAN: 1. Bilateral pulmonary thromboembolism. Patient is currently on therapeutic Lovenox. Recommend transitioning to Xarelto 15 mg b.i.d. for 21 days and then 20 mg thereafter. We will see the patient once he is discharged from the hospital. At that time, we will follow up on the remainder of his hypercoagulable workup. We can also monitor his Xarelto once as an outpatient. 2. History of renal cell carcinoma. The patient will also need a PET scan as an outpatient. We can have this set up through our office with a quick follow up. 3. Hypertension. Well controlled. Continue current management. DISPOSITION: The patient reports that he believes he may go home in the next couple days. Again, we will plan to see the patient within the next 1-2 weeks in our office with the PET scan prior to his appointment. We can go ahead and initiate this appointment once he is actually discharged. Dictated by ROYER Garza for Mylene Syed MD cc: MD Pieter Figueroa MD I have seen and examined the patient and agree with above A/P. Mylene COSTELLO
--- NOTE | 2017-06-13 18:29 | PROGRESS NOTE ---
DATE: 06/13/2017 SUBJECTIVE: Patient is doing very well. No chest pain or shortness of breath. REVIEW OF SYSTEMS: None reported. PHYSICAL EXAMINATION: Vital Signs: He is afebrile. Vitals are stable. HEENT Examination: Within normal limits. Neck: Supple. Chest: Clear. Heart: Sounds are regular. Abdomen: Belly is soft, nontender. Good bowel sounds. No masses palpable. Extremities: No peripheral edema. Neurologic: No neurological deficits. INVESTIGATIONS: Factor Leiden and prothrombin [id number] mutation gene were negative. Cardiac enzymes were negative. Venous Dopplers were negative. ASSESSMENT AND PLAN: Chest pain due to pulmonary embolism. I appreciate Dr. Mylene Syed's consultation. Continue on Lovenox. We will transition her tomorrow to Xarelto 15 mg p.o. b.i.d. for 21 days and then 20 mg after, and continue to follow up as an outpatient for PE as well as renal cell carcinoma. I discussed the plan of care with the patient. LEVEL OF DOCUMENTATION: 25 minutes. cc: Pieter Roberson MD
[2017-06-13] MEDS: XARELTO PO SCH (21:27)
[2017-06-14 08:26] VITALS: BP 134/79
[2017-06-14] MEDS: XARELTO PO SCH (08:35)
[2017-06-14] MEDS: PRINIVIL PO SCH (08:35)
--- NOTE | 2017-06-14 11:09 | Diag Imaging Result Doc PS360 ---
EXAM: CT ANGIOGRM/PULMONARY ARTERIES HISTORY: Chest pain; elevated D-Dimer TECHNIQUE: CT of the chest with intravenous contrast with pulmonary arteriogram protocol and 3-D MIPS with dose reduction (clarity.) COMMENT: There are filling defects in the pulmonary artery branches in the right lower lobe and the anteromedial right middle lobe. No abnormal fluid collections are present and there is no evidence of significant adenopathy. There are patchy areas of atelectasis and possible air trapping in the lung bases particularly the left lower lobe. The regional skeleton is intact. There are no previous studies. IMPRESSION: Pulmonary emboli, particularly in the right lower lobe. Electronically signed by Jeevan Price 06/14/2017 11:07 AM
--- NOTE | 2017-06-16 14:38 | DISCHARGE SUMMARY ---
ADMISSION DATE: 06/11/2017 DISCHARGE DATE: 06/14/2017 DISCHARGING DIAGNOSIS: Left-sided chest pain and shortness of breath due to pulmonary embolism. SECONDARY DIAGNOSES: 1. Right upper lobe renal cell carcinoma, status post cryoablation. 2. Hypertension. CONSULTANTS: Dr. Syed BRIEF HISTORY: Please see the H and P that was done by hospitalist. In brief, he is a 56-year- old, pleasant white gentleman, with a known history of right-sided kidney mass. Unable to locate here by open method. Subsequently referred to the [facility], had a cryoablation done. He is due for followup CT scans next month. In the meantime, he came in with chest pain and shortness of breath, left-sided. HOSPITAL COURSE: He was ruled out for HI by serial cardiac enzymes. EKG did not show any evidence of injury or ischemia. CT pulmonary angiogram showed bilateral pulmonary emboli, mostly on the right side. Venous Dopplers were negative for DVT in either leg. Thrombophilia workup was in progress and, so far, homocystine is negative, protein C is normal , protein S is slightly low, antithrombin 3 is normal. Leiden factor is negative. Prothrombin G [id number] mutation was negative. Phospholipid antibody is negative. The patient was advised to take Xarelto 15 p.o. b.i.d. for 21 days, followed by once a day. Dr. Syed is also going to manage and follow up on renal cell lesion locally. DISCHARGE INSTRUCTIONS: 1. Lisinopril 10 mg daily, Xarelto 15 p.o. b.i.d. for 21 days, and then once a day. 2. Follow up in my office next week, as well as Dr. Syed. 3. He is also going to be monitored by the urologist in [place] for renal cell carcinoma on the right side of the kidney. cc: MD Dr. Yahaira Stevenson
--- NOTE | 2017-07-24 11:43 | ED EKG INTERP ---
This chart was entered by Jennifer Valdes Scribe, acting as scribe for Jerel Krause MD. EKG Interpretation - EKG Time of EKG reading by physician:: 17:25 EKG Interpretation (*Must complete 3 of following elements*): Abnormal [place]: normal QRS: normal MS Interval: normal ST Wave: non-specific ST changes Prior EKG Comparison: no prior EKG <Harpal Neal - Last Filed: 07/27/17 14:26> - EKG Time of EKG reading by physician:: 17:25 EKG Read and Signed by:: Harpal Neal EKG Interpretation (*Must complete 3 of following elements*): Normal Rate: 71 Rhythm: Normal sinus rhythm. [place]: normal (PRT axis 51 -6 28.) MS Interval: normal (MS interval 166 ms.) <Jerel Krause - Last Filed: 07/30/17 13:21> Attestation - Physician/ BRENDA Attestation Patient care was provided by Advanced Practice Provider:: No The physician spent face to face time with patient:: Yes Advanced Practice Provider documentation review:: Supervising physician onsite and consulted in the evaluation and care of this patient. The physician did have a face to face encounter with the patient. <Harpal Neal - Last Filed: 07/27/17 14:26> - Physician/ BRENDA Attestation The physician spent face to face time with patient:: Yes Advanced Practice Provider documentation review:: Supervising physician onsite and consulted in the evaluation and care of this patient. The physician did have a face to face encounter with the patient. <Jerel Krause - Last Filed: 07/30/17 13:21> This chart was documented by the indicated scribe, (Jennifer Valdes Scribe) and accurately reflects the services I performed and decisions made by me, Jerel Krause MD, as attested by the provider's signature.
== END 2017-06-14 09:35 | disposition home or self-care (01) ==
LOC: ED 17:21 → SUATTDRO 06-11 02:06 → 4N 06-11 02:06
PROVIDERS: ADMIT Internal Medicine; ATTEND Internal Medicine